=== PATIENT | male | born 1995 ===

== ENCOUNTER 2021-01-24 19:55 | Emergency (ER) | payer OTHER ==
[~2021-01-24] VITALS: Ht 167.6 cm; Wt 88.5 kg
--- NOTE | 2021-01-24 20:43 | NUR ---
Patient is resting comfortably in bed with eyes closed, no acute distress noted.
[2021-01-24] MEDS: IV NORMAL SALINE 1000 ML BAG IV ONE (21:20)
[2021-01-24 21:29] LABS: *BILIRUBIN,URIN NEGATIVE (NEGATIVE); *BLOOD, URINE NEGATIVE (NEGATIVE); *CLARITY,URINE CLEAR (CLEAR); *COLOR,URINE YELLOW (YELLOW); *KETONES,URINE NEGATIVE (NEGATIVE); *UROBILINOGEN,URINE 0.2 E.U./dl (NORMAL); LEUKOCYTE ESTERASE ,URINE NEGATIVE (NEGATIVE); NITRITE, URINE NEGATIVE (NEGATIVE); UGLUCOSE NEGATIVE (NEGATIVE)
[2021-01-24 21:35] LABS: CREATININE 1.2 mg/dL (0.6-1.3)
[2021-01-24 21:40] LABS: HEMATOCRIT 46.5 % (36.7-47.1); MEAN CORPUSCULAR HEMOGLOBIN 29.4 uug (23.8-33.4); MEAN CORPUSCULAR VOLUME 86.1 fL (73.0-96.2); PLATELET COUNT (AUTO) 101 K/uL (152-348)
[2021-01-24 21:47] LABS: BILIRUBIN,DIRECT 0.1 mg/dL (0.0-0.2); BILIRUBIN,TOTAL 0.5 mg/dL (0.2-1.0)
[2021-01-24] MEDS ORDERED: IV NORMAL SALINE 250 ML IV ONE (22:07)
[2021-01-24] MEDS ORDERED: SWABABLE VALVE TRANSFER SET EA MC ONE (22:07)
[2021-01-24] MEDS ORDERED: IOHEXOL 300MG/ML 100 ML INFUS..BTL ONE (22:07)
--- NOTE | 2021-01-24 22:21 | NUR ---
PT TAKEN DOWN FOR CT, SIGNED CONSENT FOR CT OF ABDOMEN/PELVIS.
--- NOTE | 2021-01-24 22:40 | NUR ---
PT RETURNED FROM CT, STABLE CONDITION.
[2021-01-24] MEDS ORDERED: OXYC-128 PO (23:55)
[2021-01-25 00:15] VITALS: BP 132/82
--- NOTE | 2021-01-25 00:15 | NUR ---
Patient discharged to home in stable condition. Written and verbal after care instructions given. Patient verbalizes understanding of instructions. Stressed follow up or return to ER for worsening s/s. Patient ambulates with steady gait, V/S stable, IV line removed, paper Rx given, and left with all personal belongings.
== END 2021-01-25 00:15 | disposition home or self-care (01) ==
LOC: ER 19:58
DX: K63.89 Other specified diseases of intestine (principal); K76.0 Fatty (change of) liver, not elsewhere classified; E66.9 Obesity, unspecified; Z68.31 Body mass index [BMI] 31.0-31.9, adult; Z88.0 Allergy status to penicillin
CPT/HCPCS: 36415; 74018; 74177; 80048; 80076; 81003; 85025; 96360; 99285; Q9967; A4663; J7030; J7050